=== PATIENT | male | born 2005 | race Caucasian/White ===

== ENCOUNTER 2023-11-07 11:49 | Observation (INO) ==
[2023-11-07 13:19] LABS: Hematocrit (blood only) 46.6 % (42.0-52.0); Hemoglobin 15.5 g/dl (14.0-18.0); Mean Corpuscular Hemoglobin 29.8 pg (25.0-34.0); Mean Corpuscular Hgb Conc 33.3 g/dL (32.0-36.0); Mean Corpuscular Volume 89.6 fL (80.0-100.0); Mean Platelet Volume 10.8 fL (9.4-12.4); Platelet Count 194 K/uL (130-400); RDW Coefficient of Variation 12.7 % (11.5-14.5); RDW Standard Deviation 41.4 fL (36.4-46.3); White Blood Count 8.86 K/ul (4.8-10.8)
--- NOTE | 2023-11-07 13:22 | Emergency Department Note ---
Impression & Plan Transaminitis, Acute Enrique Lord virus (EBV) infection ED Provider Note NAME: MEGAN CAMPO AGE: 18 SEX: M : 2005 ARRIVES VIA: Walk-In INFORMANT: Patient, ED PROVIDER(S): Pete Perera MD CHIEF COMPLAINT: Nausea, vomiting HPI: This is a 18-year-old male with history of recent transaminitis presenting for nausea and vomiting that is persistent. Patient states that he was seen here 2 days ago. He states that he has been having fevers for the past 5 days which have since resolved but he has now had persistent nausea with vomiting unable to eat or drink much for the past 4 days. He notes that he was here previously and diagnosed with transaminitis of unclear etiology, thought to be due to possible mononucleosis. He had blood work pending which has not resulted. He notes because of his nausea vomiting that he presented. He notes he feels somewhat more itchy in his skin. His girlfriend notes he is slightly more yellow. He has no significant right upper quadrant pain at this time but does not he has bilateral abdominal pain when vomiting. ROS: See above HPI for pertinent positives & negatives. A total of 10 systems reviewed and were otherwise negative. PHYSICAL EXAMINATION: General: resting comfortably in no acute distress Head: Normocephalic and atraumatic Eyes: Normal inspection, extraocular muscles intact Ear, nose, throat: Normal external exam Neck: Normal range of motion Respiratory: lungs clear to auscultation bilaterally Cardiovascular: Regular rate/rhythm, no murmur GI: soft, nontender, no guarding or rebound Extremities: nontender, moves all extremities Neuro: The patient awake and alert, appropriately conversive, no focal deficits, symmetric faces Skin: Warm, dry, and intact, minimal jaundice MEDICAL DECISION MAKING: This is a 18-year-old male presenting for nausea vomiting and transaminitis. Will repeat blood work as patient did have significant elevated LFT, lipase and alkaline phosphatase earlier in the week. -Transaminitis is worsening, now with bilirubin of 6.6, presented as of 415/860, AST/ALT respectively, alk phos 258 -Otherwise patient does note he has had significant trouble with eating and drinking, do believe patient required mission for the transaminase as well as dehydration and intractable nausea/vomiting -Did review CT imaging from last visit showing hepatosplenomegaly -Is EBV did come back positive which was sent on his last ER visit -Patient excepted to the care of Dr. Gonzales Differential diagnosis: Hepatic failure, mononucleosis, ER treatment provided: See below Diagnostics interpreted by me: ECG: None Cardiac Monitoring: An order was placed for continuous cardiac monitoring. The monitor shows a rate of 66 with sinus rhythm. Laboratory studies: As stated above and show below. Imaging studies: See below. Past Med/Surg History Medical History (Updated 11/07/23 @ 19:06 by Pete Perera MD) No pertinent past medical history Surgical History (Updated 02/28/21 @ 14:22 by Shayla Phan) No pertinent past surgical history Social History Smoking Status: Never smoker Preferred Language: Nauruan Feels Safe at Home: Yes Allergies Allergies Allergy/AdvReac Type Severity Reaction Status Date / Time No Known Allergies Allergy Mild Verified 11/05/23 18:46 Home Meds Home Medications Medication Instructions Recorded Confirmed ibuprofen 200 mg tablet 600 mg PO DIRECTED PRN Pain 11/05/23 11/07/23 ondansetron HCl 4 mg tablet 4 mg PO TID PRN NAUSEA/VOMITING 11/05/23 11/07/23 Results & Data (ED) Vital Signs Vital Signs - 24 hr 11/07/23 11:51 11/07/23 12:12 11/07/23 12:19 Temperature 36.7 C Temperature Source Oral Pulse Rate 83 76 Pulse Rate [Apical] 74 Respiratory Rate 18 18 Respiratory Effort / Characteristics Non-Labored Spontaneous Respiratory Depth Normal Respiratory Pattern Regular Blood Pressure 174/81 H Blood Pressure [Left Arm] 155/98 H Blood Pressure Mean 112 Blood Pressure Mean [Left Arm] 117 Blood Pressure Position Sitting Blood Pressure Position [Left Arm] Sitting Pulse Oximetry 97 98 Oxygen Delivery Method Room Air Room Air Sepsis Recent Fever Within 48 Hours No Sepsis New/Unexplained Change in Mental Status No Sepsis Action Taken by Nursing No Action Required 11/07/23 13:06 11/07/23 14:27 11/07/23 16:19 Temperature Temperature Source Pulse Rate 66 Pulse Rate [Apical] 72 75 Respiratory Rate 18 Respiratory Effort / Characteristics Non-Labored Spontaneous Respiratory Depth Normal Respiratory Pattern Regular Blood Pressure Blood Pressure [Left Arm] 121/59 L 128/66 Blood Pressure Mean Blood Pressure Mean [Left Arm] 79 86 Blood Pressure Position Blood Pressure Position [Left Arm] Lying Lying Pulse Oximetry 97 97 Oxygen Delivery Method Room Air Room Air Sepsis Recent Fever Within 48 Hours Sepsis New/Unexplained Change in Mental Status Sepsis Action Taken by Nursing Laboratory Data 11/07/23 12:02 11/07/23 12:02 Lab Results 11/07/23 11/07/23 Range/Units 12:02 15:10 WBC 8.86 (4.8-10.8) K/ul RBC 5.20 (4.70-6.10) M/uL Hgb 15.5 (14.0-18.0) g/dl Hct 46.6 (42.0-52.0) % MCV 89.6 (80.0-100.0) fL MCH 29.8 (25.0-34.0) pg MCHC 33.3 (32.0-36.0) g/dL RDW Std Deviation 41.4 (36.4-46.3) fL RDW Coeff of Cheryl 12.7 (11.5-14.5) % Plt Count 194 (130-400) K/uL MPV 10.8 (9.4-12.4) fL Neutrophils % (Manual) 23 % Lymphocytes % (Manual) 4 % Reactive Lymphs % (Man) 72 % Basophils % (Manual) 1 % Neutrophils # (Manual) 2.04 (1.40-6.50) K/uL Total Absolute Neuts 2.04 (1.4-6.5) K/uL Lymphocytes # (Manual) 0.35 L (1.2-3.4) K/uL Reactive Lymphs # 6.38 K/uL Total Abs Lymphocytes 6.73 H (1.2-3.4) K/uL Basophils # (Manual) 0.09 (0-0.2) K/uL Peripher Smr Path Cons Sodium 138 (136-145) mmol/L Potassium 3.7 (3.5-5.1) mmol/L Chloride 100 (98-107) mmol/L Carbon Dioxide 28 (21-32) mmol/L Anion Gap 10 (3-11) BUN 12 (6-23) mg/dl Creatinine 1.10 (0.6-1.4) mg/dl Est Cr Clr Drug Dosing 115.1 ml/min Est GFR ( Amer) 111.4 ml/min Est GFR (Non-Af Amer) 96.1 ml/min BUN/Creatinine Ratio 10.9 (10-20) Glucose 93 (70-99(Fasting)) mg/dl Calcium 9.7 (8.6-10.3) mg/dl Total Bilirubin 6.6 H (0.2-1.0) mg/dl Direct Bilirubin 3.7 H (0-0.2) mg/dl AST 415 H (13-39) U/L ALT 860 H (7-52) U/L Alkaline Phosphatase 258 H (34-104) U/L Lactate Dehydrogenase 553 H (86-244) U/L Total Protein 7.7 (6.0-8.3) gm/dl Albumin 4.4 (3.4-5.0) gm/dl Globulin 3.3 (2.5-4.0) gm/dl Albumin/Globulin Ratio 1.3 (0.9-2) Lipase 12 (11-82) U/L Urine Color Dark Yellow Urine Appearance Clear (Clear) Urine pH 7.5 (4.5-7.5) Ur Specific [place] 1.012 (1.000-1.030) Urine Protein Trace H (Negative) Urine Glucose (UA) Negative (Negative) Urine Ketones Negative (Negative) Urine Blood Negative (Negative) Urine Nitrite Negative (Negative) Urine Bilirubin 2+ H (Negative) Urine Urobilinogen Positive H (Negative) Ur Leukocyte Esterase Negative (Negative) Urine WBC (Auto) 0-5 (0-5) /hpf Urine RBC (Auto) 0-2 (0-2) /hpf U Hyaline Cast (Auto) 0-2 (0-2) /lpf U Epithel Cells (Auto) 0-2 (0-2) /hpf Urine Bacteria (Auto) None Seen (None Seen) Direct Antiglob Test Negative (Negative) ALHAJI (IgG-AHG) Neg (Negative) ALHAJI, Polyspecific Neg (Negative) ALHAJI C3b, C3d 5 Min Neg (Negative) Administered Medications Lactated Ringer's (Lr) 1,000 mls @ 150 mls/hr IV .Q6H40M DELILAH Stop: 12/07/23 15:14 Last Admin: 11/07/23 16:12 Dose: 150 mls/hr Documented By: ACC Discontinued Medications Sodium Chloride (Nss) 1,000 mls @ 999 mls/hr IV .Q1H1M ONE Stop: 11/07/23 15:22 Last Infusion: 11/07/23 16:49 Dose: Infused Documented By: Admin: 11/07/23 14:28 Dose: 999 mls/hr Documented By: TNK Pantoprazole Sodium 40 mg/ (Syringe) 10 mls @ 5 mls/min IV NOW ONE Stop: 11/07/23 15:31 Last Admin: 11/07/23 16:04 Dose: 5 mls/min Documented By: ACC Famotidine (Pepcid 20mg Iv Push) 20 mg in 5 mls @ 2.5 mls/min IV NOW STA Stop: 11/07/23 15:28 Last Admin: 11/07/23 16:04 Dose: 2.5 mls/min Documented By: ACC Ketorolac Tromethamine (Ketorolac Tromethamine 15 Mg/Ml Vial) 10 mg IV NOW ONE Stop: 11/07/23 14:23 Last Admin: 11/07/23 14:28 Dose: 10 mg Documented By: TNK Promethazine HCl (Promethazine Hcl 25 Mg Tab) 25 mg PO NOW ONE Stop: 11/07/23 14:23 Last Admin: 11/07/23 14:28 Dose: 25 mg Documented By: TNK Imaging Data Radiologist's Impression: Liver Ultrasound 11/07/23 14:21 US liver CLINICAL HISTORY: xaminitis, +bili. r/o biliary obstruction TECHNIQUE: Multiple real-time sonographic images of the right upper quadrant were obtained. Comparison: Comparison is made to CT abdomen pelvis 11/05/2023 FINDINGS: The liver is diffusely homogenous with normal contour and echogenicity. No focal mass lesions are seen. No intrahepatic ductal dilatation is seen. No gallstones or sludge are identified within the gallbladder. The gallbladder wall is not thickened. There is no pericholecystic fluid present. A sonographic Armendariz's sign was not elicited by the budget coordinator. The common duct measures 0.4 cm in diameter at the level of the hepatic artery. The visualized portions of the pancreas appear normal. The right kidney shows normal echogenicity, cortical thickness and renal contour. The right kidney shows no evidence of hydronephrosis or mass. No ascites or free fluid is seen in Michael's pouch. IMPRESSION: No acute abnormality, in particular no evidence of cholecystitis or biliary duct dilation. ACT 112: Negative or not required by law. Electronically signed by: Bryce Delcid M.D. 11/07/2023 5:15 PM Discharge Plan Visit Data Chief Complaint: Illness Stated Complaint: UNABLE TO EAT OR DRINK ED Provider: Pete Perera Discharge Problem: Transaminitis, Acute Enrique Lord virus (EBV) infection Forms Stand Alone Forms: [facility] [employer] Prescriptions Prescriptions: No Action ondansetron HCl 4 mg tablet 4 mg PO TID PRN (Reason: NAUSEA/VOMITING) ibuprofen 200 mg Tablet 600 mg PO DIRECTED PRN (Reason: Pain) Referrals Referrals: PCP,NO [Primary Care Provider] -
[2023-11-07 13:32] LABS: Albumin Level 4.4 gm/dl (3.4-5.0); Bilirubin,Total 6.6 mg/dl (0.2-1.0); Calcium 9.7 mg/dl (8.6-10.3); Potassium 3.7 mmol/L (3.5-5.1)
[2023-11-07 13:39] LABS: BUN Creatinine Ratio 10.9 (10-20); Creatinine Clr Calc Pharmacy 115.1 ml/min; Est GFR (African American) 111.4 ml/min; Est GFR (Non-African American) 96.1 ml/min
[2023-11-07 14:01] LABS: Appearance Urine Clear (Clear); Bacteria Urine Automated None Seen (None Seen); Bilirubin Urine 2+ (Negative); Blood Urine Negative (Negative); Cast Urine Automated 0-2 /lpf (0-2); Color Urine Dark Yellow; Epithelial Cell Urine Auto 0-2 /hpf (0-2); Glucose Urine UA Negative (Negative); Ketones Urine Negative (Negative); Leukocyte Esterase Urine Negative (Negative); Nitrite Urine Negative (Negative); Protein Urine Trace (Negative); RBC Urine Automated 0-2 /hpf (0-2); Specific Gravity Urine 1.012 (1.000-1.030); Urobilinogen Urine Positive (Negative); WBC Urine Automated 0-5 /hpf (0-5); pH Urine 7.5 (4.5-7.5)
[2023-11-07 14:03] LABS: Albumin Globulin Ratio 1.3 (0.9-2); Globulin 3.3 gm/dl (2.5-4.0); Total Protein 7.7 gm/dl (6.0-8.3)
[2023-11-07] MEDS: PROMETHAZINE HCL 25 MG TAB PO ONE ×2 (14:28→19:57)
[2023-11-07] MEDS: SODIUM CHLORIDE 0.9% 1,000 ML IV ONE (14:28)
[2023-11-07] MEDS: KETOROLAC TROMETHAMINE 15 MG/ML VIAL IV ONE (14:28)
--- NOTE | 2023-11-07 14:31 | History & Physical Report ---
Date of Service November 07, 2023 Assessment & Plan (1) Acute Enrique Lord virus (EBV) infection: Plan: Worsening transaminitis, suspected acute cholestatic EBV - CT-A/P 11/04: shows splenomegaly. No other acute abnormality is noted, no abnormalities with gallbladder/bile duct/liver is seen. - EBV serology is with positive IgM/IgG viral capsid ab but negative EBNA antibody negative indicating acute active primary infection - Hepatitis serology is pending - w/ continued symptoms and worsening labs, right upper quadrant ultrasound has been ordered to R/o biliary obstruction/stones. 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 IHA/hemolysis labs were ordered, direct Belinda was normal. continue fluids and supportive care, Tylenol deferred due to hepatitis, ibuprofen continued for fever/pain. Limited evidence to support the use of corticosteroids or antivirals in severe/cholestatic EBV infections; will defer at this time. Zofran as needed. Plan DVT prophylaxis: SCDs, ambulate Disposition: Medical/surgical CODE STATUS: Full code Diet: N.p.o. pending right upper quadrant ultrasound, if no biliary obstruction advance to regular History of Present Illness Primary Care Provider: NO PCP 18-year-old male with a history of over 1 week of general unwellness, poor p.o. intake, anorexia who was seen 11/04 send have [address]aminitis. CT at that time was negative. He is seen with continued symptoms 11/06 in the ER. He has uptrending hyperbilirubinemia, uptrending transaminitis, and continues to feel poorly. Fever of 100*F on 10/28. Didn't feel 'too terrible' so tried to wait it out, but continued to feel poorly for several days. Saw urgent care who performed a UA which showed abnormalities, had followup bloodwork showing a transaminitis for which he was seen in the ER. CT was normal and went home. Unfortunately could not eat or drink due to stomach discomfort. Has some throat pain from vomiting, but does not feel like he has a sore throat similar to like what he has had with a cold before. No pain with meals, but immediately gets nauseus and throws up. 'Food feels great, until it comes right back up' No bloody or black BMs. Last BM 2-3 days ago. No white/nathan colored BMs. No abdominal pain at rest, when he sneezes or vomits gets some epigastric and pain at the lower ribs in the mid axillary line bilaterally No personal or family history of heart disease, thyroid disease, DVT/PE, or bleeding issues. Mother: Autoimmune kidney and ovarian disease. Does no tknow the details Father: No medical issues. No history of medical problems Elliott not take any medications No known drug allergies No tobacco product use, no vape use, rare ETOH use last as over 10 days. Drinks once per week at most, will have 5+ drink sin a sitting when he does drink. Intermittent marijuana use. No other recreational drug use. Is not a student Lives in the area in [place] PCP. OK with being set up with a PCP. Allergies Allergy/AdvReac Type Severity Reaction Status Date / Time No Known Allergies Allergy Mild Verified 11/05/23 18:46 Home Medications Medication Instructions Recorded Confirmed Type ibuprofen 200 mg tablet 600 mg PO DIRECTED PRN Pain 11/05/23 11/05/23 History ondansetron HCl 4 mg tablet 4 mg PO TID PRN NAUSEA/VOMITING 11/05/23 11/05/23 History Past Med/Surg History Medical History (Updated 11/07/23 @ 15:05 by Moses Gonzales MD) No pertinent past medical history Surgical History (Updated 02/28/21 @ 14:22 by Shayla Phan) No pertinent past surgical history Social History Smoking Status: Never smoker Preferred Language: Kazakh Feels Safe at Home: Yes Physical Exam Physical Exam: General: A&Ox3. NAD. Cooperative. +jaundice HEENT: Atraumatic, normocephalic. +scleral icterus. PERLAA. Vision and hearing intact Pulm: CTAB A&P. -wheezes, -rales, -rhonchi. Symmetrical chest rise. No increased work of breathing. No respiratory distress. Cardiac: RRR, -mrg. Radial pulses intact and symmetrical. Abdominal: Nontender to palpation, nondistended, soft. BS present. Specifically no RUQ pain/Vina not present. Palpable splenomegaly is present Ext: warm, dry Results & Data Results & Data Vital Signs (Past 12 Hours) Vital Signs Temp Pulse Pulse Resp BP BP Pulse Ox 11/07/23 14:27 75 18 128/66 97 11/07/23 13:06 72 121/59 L 97 11/07/23 12:19 76 11/07/23 12:12 74 18 155/98 H 98 11/07/23 11:51 36.7 C 83 18 174/81 H 97 O2 Del Method 11/07/23 14:27 Room Air 11/07/23 13:06 Room Air 11/07/23 12:19 11/07/23 12:12 Room Air 11/07/23 11:51 Room Air PG Care Time/CCT Total # of Minutes Spent Total Time Spent with Patient: Total time spent is greater than 50% in coordination of care (as documented) at patient's floor/unit and/or counseling patient: Coding Level of Care Code 10505 INT INP/OBS CARE 2/55MIN Diagnoses Acute Enrique Lord virus (EBV) infection B27.00
[2023-11-07 14:41] LABS: Bilirubin Direct 3.7 mg/dl (0-0.2)
[2023-11-07 14:42] LABS: ALC (manual) 6.73 K/uL (1.2-3.4); ANC (manual) 2.04 K/uL (1.4-6.5); Basophils # (manual) 0.09 K/uL (0-0.2); Basophils % (manual) 1 %; Lymphocytes # (manual) 0.35 K/uL (1.2-3.4); Lymphocytes % (manual) 4 %; Neutrophils # (manual) 2.04 K/uL (1.40-6.50); Neutrophils % (manual) 23 %; Reactive Lymphocytes # (manual) 6.38 K/uL; Reactive Lymphocytes % (manual) 72 %
[2023-11-07] MEDS ORDERED: ONDANSETRON INJ 2 MG/ML 2 ML VIAL IV PRN (15:15)
[2023-11-07] MEDS: FAMOTIDINE 20MG IV PUSH 20 MG/5 ML SYR IV STA (16:04)
[2023-11-07] MEDS: PANTOprazole 40 MG in SYRINGE 0 ML IV ONE (16:04)
[2023-11-07] MEDS: LACTATED RINGER'S 1,000 ML IV SCH (16:12)
--- NOTE | 2023-11-07 17:17 | Ultrasound Report ---
US liver CLINICAL HISTORY: xaminitis, +bili. r/o biliary obstruction TECHNIQUE: Multiple real-time sonographic images of the right upper quadrant were obtained. Comparison: Comparison is made to CT abdomen pelvis 11/05/2023 FINDINGS: The liver is diffusely homogenous with normal contour and echogenicity. No focal mass lesions are see n. No intrahepatic ductal dilatation is seen. No gallstones or sludge are identified within the g allbladder. The gallbladder wall is not thickened. There is no pericholecystic fluid present. A sonog raphic Armendariz's sign was not elicited by the link and link knitting machine operator. The common duct measures 0.4 cm in diamet er at the level of the hepatic artery. The visualized portions of the pancreas appear normal. The right kidney shows normal echogenicity, cortical thickness and renal contour. The right kidney sh ows no evidence of hydronephrosis or mass. No ascites or free fluid is seen in Michael's pouch. IMPRESSION: No acute abnormality, in particular no evidence of cholecystitis or biliary duct dilation. ACT 112: Negative or not required by law. Electronically signed by: Bryce Delcid M.D. 11/07/2023 5:15 PM
[2023-11-07] MEDS: IBUPROFEN 200 MG TAB PO PRN (19:36)
[2023-11-07] MEDS ORDERED: MELATONIN 3 MG TAB PO PRN (20:39)
[2023-11-07] MEDS ORDERED: POLYETHYLENE (MIRALAX) 17 GM PACK PO PRN (20:39)
[2023-11-07 21:55] LABS: BUN Creatinine Ratio 11.8 (10-20); Calcium 8.7 mg/dl (8.6-10.3); Creatinine Clr Calc Pharmacy 115.1 ml/min; Est GFR (African American) 111.4 ml/min; Est GFR (Non-African American) 96.1 ml/min; Potassium 3.3 mmol/L (3.5-5.1)
[2023-11-07 22:11] LABS: Albumin Globulin Ratio 1.4 (0.9-2); Albumin Level 3.6 gm/dl (3.4-5.0); Bilirubin,Total 6.1 mg/dl (0.2-1.0); Globulin 2.6 gm/dl (2.5-4.0); Total Protein 6.2 gm/dl (6.0-8.3)
[2023-11-08] MEDS: PROMETHAZINE HCL 25 MG TAB PO PRN (04:14)
[2023-11-08 06:53] LABS: Hematocrit (blood only) 37.6 % (42.0-52.0); Hemoglobin 12.4 g/dl (14.0-18.0); Mean Corpuscular Hemoglobin 29.7 pg (25.0-34.0); Mean Corpuscular Volume 90.2 fL (80.0-100.0); Mean Platelet Volume 9.9 fL (9.4-12.4); Platelet Count 167 K/uL (130-400); RDW Standard Deviation 42.7 fL (36.4-46.3); Red Blood Count 4.17 M/uL (4.70-6.10); White Blood Count 7.82 K/ul (4.8-10.8)
[2023-11-08 06:56] LABS: ALC (manual) 5.08 K/uL (1.2-3.4); ANC (manual) 2.11 K/uL (1.4-6.5); Basophils # (manual) 0.08 K/uL (0-0.2); Basophils % (manual) 1 %; Eosinophils # (manual) 0.08 K/uL (0-0.50); Eosinophils % (manual) 1 %; Lymphocytes # (manual) 2.35 K/uL (1.2-3.4); Lymphocytes % (manual) 30 %; Monocytes # (manual) 0.47 K/uL (0.11-0.59); Monocytes % (manual) 6 %; Neutrophils # (manual) 2.11 K/uL (1.40-6.50); Neutrophils % (manual) 27 %; RBC Morphology Unremarkable; Reactive Lymphocytes # (manual) 2.74 K/uL; Reactive Lymphocytes % (manual) 35 %
[2023-11-08 06:58] LABS: Albumin Globulin Ratio 1.4 (0.9-2); Albumin Level 3.4 gm/dl (3.4-5.0); BUN Creatinine Ratio 9.6 (10-20); Bilirubin,Total 5.6 mg/dl (0.2-1.0); Calcium 8.7 mg/dl (8.6-10.3); Creatinine Clr Calc Pharmacy 123.5 ml/min; Est GFR (African American) 119.2 ml/min; Est GFR (Non-African American) 102.9 ml/min; Globulin 2.5 gm/dl (2.5-4.0); Potassium 3.9 mmol/L (3.5-5.1); Total Protein 5.9 gm/dl (6.0-8.3)
--- NOTE | 2023-11-08 09:41 | Hospitalist Progress Note ---
Date of Service November 08, 2023 Assessment & Plan (1) Acute Enrique Lord virus (EBV) infection: (2) Transaminitis: (3) Vomiting: Plan 18-year-old male admitted to our service due to acute EBV infection with associated poor p.o. intake due to nausea and vomiting Acute EBV infection -Positive EBV serology for acute infection -Hepatitis serology pending -Liver enzymes minimally decreased compared to yesterday AST: 358 --> 354 ALT: 731 --> 719 Alk Phos: 213 --> 208 -Abd/pelvis CT (11/07/23) -showing splenomegaly (15.5 cm) and a normal liver -Right upper quadrant ultrasound without gallbladder or bile duct abnormalities -Will continue IVF and supportive care (e.g. ibuprofen for fever/pain) -Patient still feeling nauseous despite Phenergan. If nausea not well controlled with Phenergan alone, will consider changing to Zofran with Phenergan to be used for breakthrough nausea to encourage p.o. nutrition and hydration -Will also order Pepcid bid, Carafate, and continue Protonix to help with nausea -Continue to monitor LFTs with a.m. labs Disposition: Discharge with PCP follow-up once patient able to eat and drink well DVT prophylaxis: SCDs, ambulate CODE STATUS: Full code Diet: N.p.o. pending right upper quadrant ultrasound, if no biliary obstruction advance to regular Admission and Anticipated Discharge Date Admission Date: November 07, 2023 Supervising Physician Co-Signing Physician Notes I personally examined the patient and verified all delvalle points of history and exam, discussed case, and agree with decision making with Dr Isaac ongoing nausea/poor PO intake feels like a lump in throat when tries to eat vitals noted nad heent nc at mmm breathing unlabored no accessory muscles good effort skin no rashes no pallor or icterus EBV infection and secondary EBV mediated hepatitis - appears to be improving. nausea/poor PO intake main reason for ongoing hospitalization. continue IV fluids, schedule zofran/prn phenergan. bid pepcid/protonix, qid carafate. ongoing supportive care otherwise as above Subjective This is a 18-year-old male with no significant past medical history who presented to the emergency department yesterday due to 1 week of general unwellness, poor p.o. intake, fevers, sore throat, nausea and vomiting that is worse with meals and recent diagnosis of EBV/mononucleosis. He was admitted due to uptrending hyperbilirubinemia and transaminitis, as well as associated poor p.o. intake and dehydration. He was evaluated at bedside today and he is found to be alone, awake alert and oriented in all spheres, no acute distress. He refers that he is still feeling generally unwell, has a headache, and although he tries to eat, he is still having nausea with meals and for this reason has not eaten breakfast. No episode of vomiting. Denies any abdominal pain, diarrhea, fevers, chills, chest pain, shortness of breath, weakness, or any other symptoms. Review of Systems Review of Systems: As per HPI. Physical Exam Physical Exam: GENERAL: Awake alert and oriented in all spheres, afebrile, no acute distress HEAD: Atraumatic and normocephalic CHEST: Symmetric chest expansions with respirations CARDIO: Regular rate and rhythm, no rubs murmurs or gallops PULMONARY: Clear to auscultation bilaterally, no wheezing or crackles, normal respiratory effort, no respiratory distress GI: Soft, nondistended, nontender in all quadrants, decreased bowel sounds EXTREMITIES: No swelling bilateral lower extremities, no calf tenderness bilaterally SKIN: No rashes Results & Data Results & Data Vital Signs (Past 12 Hours) Vital Signs Temp Pulse Resp BP Pulse Ox O2 Del Method 11/08/23 08:06 36.8 C 57 L 16 105/58 L 96 Room Air Resident Activity Tracking Resident Involvement: Resident Care Provided Care Provided: Adult Hospital Medicine
[2023-11-08] MEDS: PANTOprazole 40 MG in SYRINGE 0 ML IV SCH ×2 (10:39→21:14)
[2023-11-08] MEDS ORDERED: BENZOCAINE/MENTHOL 18 LOZ/1 BOX MT PRN (11:41)
[2023-11-08] MEDS: FAMOTIDINE 40 MG TABLET PO ONE (16:08)
[2023-11-08] MEDS: SUCRALFATE 1 GM/10 ML UDC PO SCH (16:08)
[2023-11-08] MEDS ORDERED: SUCRALFATE 1 GM TAB PO SCH (16:30)
--- NOTE | 2023-11-08 16:37 | Billing Data ---
Date of Service November 08, 2023 Coding Level of Care Code 53388 SUB INP/OBS CARE MIN
[2023-11-08] MEDS: ONDANSETRON INJ 2 MG/ML 2 ML VIAL IV SCH (17:09)
[2023-11-08] MEDS ORDERED: PANTOprazole 40 MG TAB PO SCH (21:00)
[2023-11-08] MEDS: FAMOTIDINE 20 MG TAB PO SCH (21:14)
[2023-11-08] MEDS: CHLORASEPTIC (PHENOL) 1.4% SOLN 180 ML BTL MT PRN (23:02)
[2023-11-09 06:39] LABS: Hematocrit (blood only) 36.2 % (42.0-52.0); Hemoglobin 12.3 g/dl (14.0-18.0); Mean Corpuscular Hemoglobin 30.1 pg (25.0-34.0); Mean Corpuscular Volume 88.7 fL (80.0-100.0); Mean Platelet Volume 10.1 fL (9.4-12.4); Platelet Count 186 K/uL (130-400); RDW Coefficient of Variation 12.8 % (11.5-14.5); RDW Standard Deviation 41.5 fL (36.4-46.3); Red Blood Count 4.08 M/uL (4.70-6.10)
[2023-11-09 06:58] LABS: BUN Creatinine Ratio 6.5 (10-20); Creatinine Clr Calc Pharmacy 139.6 ml/min; Est GFR (African American) 138.3 ml/min; Est GFR (Non-African American) 119.3 ml/min; Potassium 4.1 mmol/L (3.5-5.1)
[2023-11-09 07:18] LABS: Albumin Globulin Ratio 1.3 (0.9-2); Albumin Level 3.4 gm/dl (3.4-5.0); Bilirubin,Total 4.6 mg/dl (0.2-1.0); Globulin 2.6 gm/dl (2.5-4.0)
[2023-11-09 07:19] LABS: ALC (manual) 4.05 K/uL (1.2-3.4); ANC (manual) 3.16 K/uL (1.4-6.5); Basophils # (manual) 0.08 K/uL (0-0.2); Basophils % (manual) 1 %; Lymphocytes # (manual) 1.46 K/uL (1.2-3.4); Lymphocytes % (manual) 18 %; Metamyelocytes # (manual) 0.08 K/uL (0-0); Metamyelocytes % (manual) 1 %; Monocytes # (manual) 0.73 K/uL (0.11-0.59); Monocytes % (manual) 9 %; Neutrophils # (manual) 3.16 K/uL (1.40-6.50); Neutrophils % (manual) 39 %; RBC Morphology Unremarkable; Reactive Lymphocytes # (manual) 2.59 K/uL; Reactive Lymphocytes % (manual) 32 %
--- NOTE | 2023-11-09 11:16 | Discharge Summary ---
Date of Service November 09, 2023 Admission HPI Per Admitting Provider 18-year-old male with a history of over 1 week of general unwellness, poor p.o. intake, anorexia who was seen 11/04 send have transaminitis. CT at that time was negative. He is seen with continued symptoms 11/06 in the ER. He has uptrending hyperbilirubinemia, uptrending transaminitis, and continues to feel poorly. Fever of 100*F on 10/28. Didn't feel 'too terrible' so tried to wait it out, but continued to feel poorly for several days. Saw urgent care who performed a UA which showed abnormalities, had followup bloodwork showing a transaminitis for which he was seen in the ER. CT was normal and went home. Unfortunately could not eat or drink due to stomach discomfort. Has some throat pain from vomiting, but does not feel like he has a sore throat similar to like what he has had with a cold before. No pain with meals, but immediately gets nauseus and throws up. 'Food feels great, until it comes right back up' No bloody or black BMs. Last BM 2-3 days ago. No white/nathan colored BMs. No abdominal pain at rest, when he sneezes or vomits gets some epigastric and pain at the lower ribs in the mid axillary line bilaterally No personal or family history of heart disease, thyroid disease, DVT/PE, or bleeding issues. Mother: Autoimmune kidney and ovarian disease. Does no tknow the details Father: No medical issues. No history of medical problems Elliott not take any medications No known drug allergies No tobacco product use, no vape use, rare ETOH use last as over 10 days. Drinks once per week at most, will have 5+ drink sin a sitting when he does drink. Intermittent marijuana use. No other recreational drug use. Is not a student Lives in the area in [place] PCP. OK with being set up with a PCP. Admission Exam Per Admitting Provider General: A&Ox3. NAD. Cooperative. +jaundice HEENT: Atraumatic, normocephalic. +scleral icterus. PERLAA. Vision and hearing intact Pulm: CTAB A&P. -wheezes, -rales, -rhonchi. Symmetrical chest rise. No increased work of breathing. No respiratory distress. Cardiac: RRR, -mrg. Radial pulses intact and symmetrical. Abdominal: Nontender to palpation, nondistended, soft. BS present. Specifically no RUQ pain/[place] not present. Palpable splenomegaly is present Ext: warm, dry Principal Diagnosis Acute EBV Discharge Exam GENERAL: Awake alert and oriented in all spheres, afebrile, no acute distress HEAD: Atraumatic and normocephalic CHEST: Symmetric chest expansions with respirations CARDIO: Regular rate and rhythm, no rubs murmurs or gallops PULMONARY: Clear to auscultation bilaterally, no wheezing or crackles, normal respiratory effort, no respiratory distress GI: Soft, nondistended, nontender in all quadrants, decreased bowel sounds EXTREMITIES: No swelling bilateral lower extremities, no calf tenderness bilaterally SKIN: No rashes Discharge Data Allergies Allergy/AdvReac Type Severity Reaction Status Date / Time No Known Allergies Allergy Mild Verified 11/05/23 18:46 Consultations 11/07/23 15:34 ED Decision to Admit Stat Ordered Studies 11/07/23 14:21 liver Stat Hospital Course (1) Acute Enrique Lord virus (EBV) infection: (2) Transaminitis: (3) Vomiting: Plan 18-year-old male admitted to our service due to acute EBV infection with associated poor p.o. intake due to nausea and vomiting #Acute EBV infection (Acute, stable) #Transaminitis (Acute, stable) -Positive EBV serology for acute infection -Hepatitis serology still pending -Liver enzymes improving AST: 358 --> 354 -->284 ALT: 731 --> 719 -->680 Alk Phos: 213 --> 208 --> 225 -Abd/pelvis CT (11/07/23) showing splenomegaly (15.5 cm) and a normal liver -Right upper quadrant ultrasound without gallbladder or bile duct abnormalities -Patient's nausea has improved with zofran + phenergan and pepcid/protonix/carafate. He was able to eat well today without feeling nauseous or vomiting -Will discharge patient today with Zofran and Pepcid prn -Repeat CMP in 2 weeks to assess progression -Advised precautions/avoidance with regards to contact sports or abdominal trauma given splenomegaly found on CT -Advise f/u with PCP after discharge Total Time Total Time Spent Total Time Spent (In Minutes): <30 Discharge Plan Discharge Items Patient Disposition: Home - Self-Care Reason For Visit: ACUTE MONO, SUSPECTED VIRAL CHOLESTASIS Discharge Diagnosis: Acute mononucleosis Activity: Per Instructions section Non-emergency contact: Primary Care Provider Call non-emergency contact if: your symptoms worsen and your temperature is above 101 Follow-up/Referrals: Johanna Isaac MD [Resident] - PCP,NO [Primary Care Provider] - Diet: Regular Ambulatory Orders: Comprehensive Metabolic Panel (Routine) Timeframe: 2 Weeks Location: Determined by Patient Ordered By: Johanna Mabry Attending Provider Instructions: You were admitted to the hospital due to nausea and vomiting that limited you from eating or drinking well. This could have been a consequence of your current EBV infection (mononucleosis). For this reason, while in the hospital, we treated you with anti-nausea medication as well as antacids, and with this mix your nausea was controlled well enough that you were able to eat without experiencing worsening nausea and vomiting. For this reason, we find you stable to be discharged today with a prescription for Zofran (anti-nausea), and Pepcid (antacid) to take at home as needed if your nausea comes back. These prescriptions have been sent to your pharmacy. While you were in the hospital, we were also keeping an eye on your liver enzymes since they were elevated. As the days passed, your liver enzymes were steadily decreasing. However, we would like for you to get another lab (CMP) in 2 weeks to make sure this number continued to decrease. Please bring these results with you when you follow up with a primary care provider after you are discharged. A discharge summary will be sent to your primary care physician to ensure continuity of care. Please bring this discharge summary with you to your next office appointment so that your provider can review it at that time. Follow-up appointments: Make a follow-up appointment with your PCP within the next week. It is very important that you follow up with them shortly after discharge from the hospital. Keep all your follow-up appointments as already scheduled. If you cannot make an appointment, notify your provider. Medications: Your medication list has been reviewed and reconciled upon discharge to ensure accuracy and continuity of care. An updated list of all your medications is included with your hospital discharge paperwork. Please review this list closely, and make note of any changes. We sent a new medication called Zofran to your pharmacy. Take Zofran 4mg by mouth every 6 hours as needed for management of nausea. We sent a new medication called Pepcid to your pharmacy. Take Pepcid 20mg by mouth two times a day as needed. You also have an order for a CMP that should be done in 2 weeks. You will discuss these results with your primary care provider in your post-discharge visit. If you have any issues filling these prescriptions, please call [phone] and ask to leave a message for Dr. Isaac. Take your medications as instructed; do not skip a dose of your medicines. Make sure all of your doctors know every medicine you are taking (including ldfx-fsd-ivonogl medicines, vitamins, and supplements). Call your primary care provider before taking any new medicines (including over- the-counter medicines, vitamins, and supplements), because some of these may interact with your current medications, or may make your symptoms worse. Tell your primary care provider if you cannot afford your medications. CONTACT YOUR PRIMARY CARE PROVIDER if you experience any of the following: Worsening of symptoms Fever, chills, or fatigue Difficulty following your treatment plan, or difficulty taking medications CALL 911 OR GO TO THE EMERGENCY DEPARTMENT if you experience any of the following: Sudden, severe abdominal pain or nausea/vomiting Severe chest pain, or chest pain that radiates (moves) to your jaw or arm Sudden, severe shortness of breath or difficulty breathing Thank you for allowing us to participate in your care. Pending Studies at Discharge: No Stand-Alone Forms: [facility], Smoking Cessation Medications and DC Order Prescriptions: New famotidine 20 mg Tablet 20 mg PO BID PRN (Reason: nausea and vomiting) Qty: 30 0RF ondansetron HCl 4 mg tablet 4 mg PO TID PRN (Reason: nausea and vomiting) Qty: 30 0RF Continued ondansetron HCl 4 mg tablet 4 mg PO TID PRN (Reason: NAUSEA/VOMITING) ibuprofen 200 mg Tablet 600 mg PO DIRECTED PRN (Reason: Pain) Discharge Orders: Discharge Order (Routine); Ordered 11/09/23 Ordered By: Johanna Olivera/Other Patient Handouts: Mononucleosis ([place]), ED Mononucleosis Admission Data Admit Date/Time: 11/07/23 16:23 Attending Provider: Martinez Palmer Admit Provider: Moses Gonzales Primary Care Provider: PCP,NO Other Providers: Moses Gonzales Other Interventions: Discharge Summary Assessment (RN) Last Done: 11/09/23 11:20 Supervising Physician Co-Signing Physician Notes I personally examined the patient and verified all delvalle points of history and exam, discussed case, and agree with decision making with Dr Isaac feeling much better ate well for breakfast feels up to going home vitals noted nad heent nc at mmm breathing unlabored no accessory muscles good effort skin no rashes no pallor or icterus EBV infection and secondary EBV mediated hepatitis - improving nicely. home today. prn zofran/pepcid. CMP ~2wks. yesterday discussed contact/spleen risk (he unloads trucks at work and noted that often there will be a mild degree of blunt impact, but that this is not necessary as part of the job and he could take that risk away by simply being more careful). PCP f/u (will establish w [facility]) otherwise as above Resident Activity Tracking Resident Involvement: Resident Care Provided Care Provided: Adult Hospital Medicine
--- NOTE | 2023-11-09 12:27 | Billing Data ---
Date of Service November 09, 2023 Coding Level of Care Code 89130 IN/OBS DISCH 30 MIN/LESS
== END 2023-11-09 12:49 | disposition home or self-care (01) | DRG 866 ==
LOC: ED 11:49 → 3N 16:23 → SUATTDRO 16:23 → INTOOBSV 16:23 → 3N 20:23